=== PATIENT | female | born 1965 | race Caucasian/White ===

== ENCOUNTER 2016-08-19 13:59 | Inpatient (IN) | payer OTHER ==
[~2016-08-19] VITALS: Ht 167.6 cm; Wt 102.1 kg
[2016-08-19 14:05] VITALS: BP 137/90; PULSE 95; RESP 26; TEMP 98; O2SAT 100
[2016-08-19] MEDS ORDERED: IPRATROPIUM/ALBUTEROL SULFATE 3 ML AMPUL.NEB INH ONE (14:15)
[2016-08-19 14:46] LABS: BASOPHILS # (AUTO) 0.1 K/uL (0.0-0.2); EOSINOPHILS # (AUTO) 0.4 K/uL (0.0-0.4); EOSINOPHILS % (AUTO) 4.5 % (0.0-4.0); HEMOGLOBIN 12.3 g/dL (12.0-16.0); LYMPHOCYTES % (AUTO) 20.5 % (20.5-51.5); MEAN CORPUSCULAR HEMOGLOBIN 29 pg (27-31); MEAN CORPUSCULAR HGB CONC 34 % (32-36); MEAN CORPUSCULAR VOLUME 84 fL (79.0-98.0); MONOCYTES # (AUTO) 0.4 K/uL (0.0-1.0); MONOCYTES % (AUTO) 3.9 % (1.7-9.3); NEUTROPHILS % (AUTO) 70.1 % (40.0-70.0); PLATELET COUNT (AUTO) 326 K/uL (130-430); RED BLOOD CELL COUNT(AUTO) 4.29 MIL/uL (4.2-6.2); RED CELL DISTRIBUTION WIDTH 13.1 % (9.0-15.0); WHITE BLOOD COUNT (AUTO) 9.9 K/uL (4.8-10.8)
[2016-08-19 14:48] LABS: CALCIUM 9.8 mg/dL (8.4-11.0); CREATININE 0.88 mg/dL (0.55-1.30); POTASSIUM 3.9 mmol/L (3.5-5.1)
[2016-08-19 14:53] LABS: ALBUMIN 4.5 g/dL (3.4-4.8); TOTAL BILIRUBIN 0.3 mg/dL (0.0-1.0)
[2016-08-19 15:02] LABS: BILIRUBIN,URINE NEGATIVE (NEGATIVE); BLOOD, URINE NEGATIVE (NEGATIVE); CLARITY/URINE CLEAR (CLEAR); COLOR,URINE YELLOW (YELLOW); GLUCOSE,URINE NEGATIVE (NEGATIVE); KETONES,URINE 1+ (NEGATIVE); LEUKOCYTE ESTERASE ,URINE NEGATIVE (NEGATIVE); NITRITE, URINE NEGATIVE (NEGATIVE); PH,URINE 8.5 (5.0-8.0); PROTEIN URINE NEGATIVE (NEGATIVE); UROBILINOGEN,URINE 0.2 (0.2-1.0)
[2016-08-19 15:12] LABS: BARBITURATE, URINE NEGATIVE (NEG <=200); BENZODIAZEPINE, URINE NEGATIVE (NEG <=150); CANNABINOID, URINE NEGATIVE (NEG <=50); COCAINE, URINE NEGATIVE (NEG <=150); METHAMPHETAMINES SCREEN,URINE NEGATIVE (NEG <=500); OPIATE, URINE NEGATIVE (NEG <=100); PHENCYCLIDINE SCREEN,URINE NEGATIVE (NEG <=25); UR TRICYCLIC ANTIDEPRESSANTS NEGATIVE (NEG <=300); URINE AMPHETAMINE NEGATIVE (NEG <=500); URINE METHADONE NEGATIVE (NEG <=200); URINE OXYCODONE SCREEN NEGATIVE (NEG <=100); URINE PROPOXYPHENE SCREEN NEGATIVE (NEG <=300)
[2016-08-19] MEDS ORDERED: methylPREDNISolone SOD SUCC/PF 62.5 MG/ML VIAL IVP ONE (15:45)
[2016-08-19] MEDS ORDERED: MOXIFLOXACIN HCL 400 MG TABLET (AVELOX) PO ONE (16:00)
[2016-08-19] MEDS ORDERED: ALBU8.5H8 INH (16:44)
[2016-08-19] MEDS ORDERED: LEVO75TA7 PO (16:44)
[2016-08-19] MEDS ORDERED: ONDANSETRON 4 MG ODT TAB PO ONE (16:45)
[2016-08-19] MEDS ORDERED: NACL 0.9% 1,000 ML IV ONE (17:00)
[2016-08-19 17:18] VITALS: BP 109/66; PULSE 84; RESP 20; TEMP 97.6; O2SAT 100
[2016-08-19] MEDS ORDERED: ALBUTEROL MDI INHALATION 8 GM INH INH PRN (17:45)
[2016-08-19] MEDS ORDERED: ONDANSETRON HCL 4 MG/2 ML VIAL IVP PRN (17:45)
[2016-08-19] MEDS ORDERED: MORPHINE 2 MG/ML INJ. SYRINGE IVP PRN (17:45)
[2016-08-19] MEDS ORDERED: DOCUSATE SODIUM 100 MG CAPSULE PO PRN (17:45)
[2016-08-19] MEDS ORDERED: ZOLPIDEM TARTRATE 5 MG TABLET PO PRN (17:45)
[2016-08-19] MEDS ORDERED: LORazepam 2 MG/ML VIAL IVP PRN (17:45)
[2016-08-19] MEDS ORDERED: MAGNESIUM SULFATE 50 ML IV PRN (17:45)
[2016-08-19] MEDS ORDERED: POTASSIUM CHLORIDE 10 MEQ TAB.PRT.SR PO PRN (17:45)
[2016-08-19 19:30] VITALS: BP 138/82; PULSE 103; RESP 20; TEMP 97.8; O2SAT 99
[2016-08-19] MEDS ORDERED: ALPRAZolam 0.25 MG TABLET PO PRN (19:45)
[2016-08-19] MEDS ORDERED: LEVALBUTEROL HCL 0.63 MG/3 ML VIAL.NEB INH ONE (20:00)
[2016-08-19 20:49] VITALS: BP 138/82; PULSE 103
[2016-08-19] MEDS: LACTOBACILLUS RHAMNOSUS GG 1 CAP CAPSULE PO SCH (20:58)
[2016-08-19] MEDS: HEPARIN SODIUM,PORCINE 5000 UNITS/ML VIAL SUBCUT SCH (21:00)
[2016-08-19] MEDS: methylPREDNISolone SOD SUCC/PF 62.5 MG/ML VIAL IVP SCH (21:16)
[2016-08-20] VITALS: BP 116/64; PULSE 97; RESP 16; TEMP 97.6; O2SAT 98
[2016-08-20 04:00] VITALS: BP 122/67; PULSE 92; RESP 16; TEMP 98; O2SAT 97
[2016-08-20] MEDS: LEVALBUTEROL HCL 0.63 MG/3 ML VIAL.NEB INH SCH ×4 (04:19→19:26)
[2016-08-20] MEDS: methylPREDNISolone SOD SUCC/PF 62.5 MG/ML VIAL IVP SCH (05:42)
[2016-08-20] MEDS: ACETAMINOPHEN 325 MG TABLET PO PRN ×2 (06:08→16:16)
[2016-08-20] MEDS: LEVOTHYROXINE SODIUM 0.075 MG TABLET PO SCH (06:08)
[2016-08-20 07:03] LABS: CREATININE 0.95 mg/dL (0.55-1.30); POTASSIUM 3.9 mmol/L (3.5-5.1)
[2016-08-20 07:12] LABS: BASOPHILS % (AUTO) 0.1 % (0.0-2.0); HEMOGLOBIN 11.7 g/dL (12.0-16.0); LYMPHOCYTES # (AUTO) 0.7 K/uL (1.0-5.5); LYMPHOCYTES % (AUTO) 7.1 % (20.5-51.5); MEAN CORPUSCULAR HEMOGLOBIN 28 pg (27-31); MEAN CORPUSCULAR HGB CONC 34 % (32-36); MEAN CORPUSCULAR VOLUME 85 fL (79.0-98.0); MONOCYTES % (AUTO) 0.5 % (1.7-9.3); NEUTROPHILS % (AUTO) 92.3 % (40.0-70.0); PLATELET COUNT (AUTO) 301 K/uL (130-430); RED BLOOD CELL COUNT(AUTO) 4.12 MIL/uL (4.2-6.2); RED CELL DISTRIBUTION WIDTH 13.4 % (9.0-15.0); WHITE BLOOD COUNT (AUTO) 9.7 K/uL (4.8-10.8)
[2016-08-20 08:00] VITALS: BP 122/76; PULSE 104; RESP 18; TEMP 98.1; O2SAT 94
[2016-08-20] MEDS: methylPREDNISolone SOD SUCC 40 MG/ML VIAL IVP SCH ×2 (09:40→20:54)
[2016-08-20] MEDS: LACTOBACILLUS RHAMNOSUS GG 1 CAP CAPSULE PO SCH ×2 (09:40→20:53)
[2016-08-20] MEDS: HEPARIN SODIUM,PORCINE 5000 UNITS/ML VIAL SUBCUT SCH ×2 (09:43→21:00)
[2016-08-20 09:56] LABS: ABG TOTAL HEMOGLOBIN 13.3 G/dL (12.0-18.0); BLOOD GAS PH 7.467 (7.350-7.450)
[2016-08-20 09:57] LABS: BLOOD GAS COHb% 0.4 % (0.5-1.5); BLOOD GAS HHB 2.6 % (0.0-6.0); BLOOD O2Hb% 96.5 % (94.0-97.0)
[2016-08-20 12:30] VITALS: BP 123/75; PULSE 115; RESP 19; TEMP 97.5; O2SAT 99
[2016-08-20 16:00] VITALS: BP 136/79; PULSE 102; RESP 20; TEMP 99.2; O2SAT 97
[2016-08-20] MEDS ORDERED: LEVOFLOXACIN 500 MG/D5W 100 ML IV SCH (17:00)
[2016-08-20 23:30] VITALS: BP 125/73; PULSE 101; RESP 20; TEMP 98; O2SAT 96
[2016-08-21] VITALS: BP 125/73; PULSE 101; RESP 18; TEMP 98; O2SAT 96
[2016-08-21 04:00] VITALS: BP 108/63; PULSE 85; RESP 20; TEMP 97.2; O2SAT 99
[2016-08-21] MEDS: LEVALBUTEROL HCL 0.63 MG/3 ML VIAL.NEB INH SCH ×4 (05:24→19:39)
[2016-08-21] MEDS: LEVOTHYROXINE SODIUM 0.075 MG TABLET PO SCH (06:49)
[2016-08-21 07:34] LABS: HEMATOCRIT 33.7 % (36-48); HEMOGLOBIN 11.1 g/dL (12.0-16.0); LYMPHOCYTES # (AUTO) 1.2 K/uL (1.0-5.5); LYMPHOCYTES % (AUTO) 7.6 % (20.5-51.5); MEAN CORPUSCULAR HEMOGLOBIN 28 pg (27-31); MEAN CORPUSCULAR HGB CONC 33 % (32-36); MEAN CORPUSCULAR VOLUME 86 fL (79.0-98.0); MONOCYTES # (AUTO) 0.4 K/uL (0.0-1.0); MONOCYTES % (AUTO) 2.8 % (1.7-9.3); NEUTROPHILS # (AUTO) 13.5 K/uL (1.8-7.7); NEUTROPHILS % (AUTO) 89.6 % (40.0-70.0); PLATELET COUNT (AUTO) 283 K/uL (130-430); RED BLOOD CELL COUNT(AUTO) 3.91 MIL/uL (4.2-6.2); RED CELL DISTRIBUTION WIDTH 13.7 % (9.0-15.0); WHITE BLOOD COUNT (AUTO) 15.1 K/uL (4.8-10.8)
[2016-08-21 07:36] LABS: CALCIUM 8.8 mg/dL (8.4-11.0); CREATININE 0.88 mg/dL (0.55-1.30); POTASSIUM 4.1 mmol/L (3.5-5.1)
[2016-08-21 07:54] LABS: BLOOD GAS BASE EXCESS -2.2 mmol/L (-3.0-3.0); BLOOD GAS COHb% 0.3 % (0.5-1.5); BLOOD GAS PH 7.473 (7.350-7.450); BLOOD O2Hb% 96.4 % (94.0-97.0)
[2016-08-21 08:14] VITALS: BP 106/51; PULSE 74; RESP 18; TEMP 97.8; O2SAT 98
[2016-08-21] MEDS: LACTOBACILLUS RHAMNOSUS GG 1 CAP CAPSULE PO SCH ×2 (08:44→21:48)
[2016-08-21] MEDS: HEPARIN SODIUM,PORCINE 5000 UNITS/ML VIAL SUBCUT SCH ×2 (08:47→21:47)
[2016-08-21] MEDS: PREDNISONE 20 MG TABLET PO SCH (09:22)
[2016-08-21] MEDS: PANTOPRAZOLE SODIUM 40 MG TAB PO SCH (09:22)
[2016-08-21] MEDS: LEVOFLOXACIN 500 MG TABLET PO SCH (09:23)
[2016-08-21 12:09] VITALS: BP 137/95; PULSE 80; RESP 16; TEMP 98.6; O2SAT 96
[2016-08-21 16:22] VITALS: BP 146/74; PULSE 100; RESP 16; TEMP 97.9; O2SAT 95
[2016-08-21 20:02] VITALS: BP 114/70; PULSE 79; RESP 15; TEMP 98.4; O2SAT 98
[2016-08-22] VITALS: BP 106/54; PULSE 78; RESP 18; TEMP 97.8; O2SAT 96
[2016-08-22] MEDS: LEVALBUTEROL HCL 0.63 MG/3 ML VIAL.NEB INH SCH ×2 (00:54→07:45)
[2016-08-22 04:32] VITALS: BP 110/62; PULSE 76; RESP 17; TEMP 98.4; O2SAT 98
[2016-08-22 07:33] LABS: EOSINOPHILS % (AUTO) 0.1 % (0.0-4.0); HEMATOCRIT 32.8 % (36-48); HEMOGLOBIN 10.8 g/dL (12.0-16.0); LYMPHOCYTES # (AUTO) 2.8 K/uL (1.0-5.5); MEAN CORPUSCULAR HEMOGLOBIN 28 pg (27-31); MEAN CORPUSCULAR HGB CONC 33 % (32-36); MEAN CORPUSCULAR VOLUME 86 fL (79.0-98.0); MONOCYTES # (AUTO) 0.5 K/uL (0.0-1.0); MONOCYTES % (AUTO) 4.6 % (1.7-9.3); NEUTROPHILS # (AUTO) 6.7 K/uL (1.8-7.7); NEUTROPHILS % (AUTO) 67.3 % (40.0-70.0); PLATELET COUNT (AUTO) 258 K/uL (130-430); RED BLOOD CELL COUNT(AUTO) 3.82 MIL/uL (4.2-6.2); RED CELL DISTRIBUTION WIDTH 13.4 % (9.0-15.0)
[2016-08-22 07:50] LABS: CALCIUM 8.4 mg/dL (8.4-11.0); CREATININE 0.88 mg/dL (0.55-1.30); POTASSIUM 3.6 mmol/L (3.5-5.1)
[2016-08-22 08:00] VITALS: BP 108/63; PULSE 75; RESP 17; TEMP 98.5; O2SAT 96
[2016-08-22] MEDS: LEVOFLOXACIN 500 MG TABLET PO SCH (09:39)
[2016-08-22] MEDS: PREDNISONE 20 MG TABLET PO SCH (09:39)
[2016-08-22] MEDS: LACTOBACILLUS RHAMNOSUS GG 1 CAP CAPSULE PO SCH (09:39)
[2016-08-22] MEDS: PANTOPRAZOLE SODIUM 40 MG TAB PO SCH (09:40)
[2016-08-22] MEDS: HEPARIN SODIUM,PORCINE 5000 UNITS/ML VIAL SUBCUT SCH (09:41)
[2016-08-22 10:09] VITALS: BP 103/63; PULSE 75; RESP 17; TEMP 98.5; O2SAT 96
== END 2016-08-22 13:50 | disposition home or self-care (01) | DRG 152 ==
LOC: SED 13:59 → STU 16:52 → SMU 17:00
PROVIDERS: ADMIT General Practice; ATTEND General Practice
DX: J01.90 Acute sinusitis, unspecified (principal); J18.9 Pneumonia, unspecified organism; J45.901 Unspecified asthma with (acute) exacerbation; E87.2 Acidosis; E66.9 Obesity, unspecified; F41.1 Generalized anxiety disorder; Z88.1 Allergy status to other antibiotic agents; Z88.0 Allergy status to penicillin; Z90.49 Acquired absence of other specified parts of digestive tract; Z79.899 Other long term (current) drug therapy; Z68.36 Body mass index [BMI] 36.0-36.9, adult
CPT/HCPCS: 36415; 36600; 70486-TC; 71010; 80048; 80053; 80307; 81003; 82785; 82803-TC; 83605; 83735-TC; 85025; 86403; 87040-TC; 87081; 94640; 94760; 96365; 96375; 99285; J1030; J1644; J1956; J2930; J7030; J7050; J7512; Q0162

== ENCOUNTER 2017-06-21 11:48 | Emergency (ER) | payer OTHER ==
[~2017-06-21] VITALS: Ht 165.1 cm; Wt 99.8 kg
[~2017-06-21 11:48] MED LIST: LEVO75TA7 PO
[2017-06-21] MEDS ORDERED: KETOROLAC TROMETHAMINE 60 MG/2 ML VIAL IM ONE (12:15)
[2017-06-21 12:17] VITALS: BP_SYST 137
[2017-06-21 12:59] LABS: HEMATOCRIT 41.4 % (36-48); HEMOGLOBIN 13.9 g/dL (12.0-16.0); MEAN CORPUSCULAR HEMOGLOBIN 31 pg (27-31); MEAN CORPUSCULAR HGB CONC 34 % (32-36); MEAN CORPUSCULAR VOLUME 91 fL (79.0-98.0); PLATELET COUNT (AUTO) 334 K/uL (130-430); RED BLOOD CELL COUNT(AUTO) 4.57 MIL/uL (4.2-6.2); RED CELL DISTRIBUTION WIDTH 11.5 % (9.0-15.0); WHITE BLOOD COUNT (AUTO) 5.2 K/uL (4.8-10.8)
[2017-06-21 13:00] LABS: BASOPHILS # (AUTO) 0.1 K/uL (0.0-0.2); BASOPHILS % (AUTO) 1.2 % (0.0-2.0); EOSINOPHILS # (AUTO) 0.1 K/uL (0.0-0.4); EOSINOPHILS % (AUTO) 2.7 % (0.0-4.0); LYMPHOCYTES # (AUTO) 1.5 K/uL (1.0-5.5); MONOCYTES # (AUTO) 0.2 K/uL (0.0-1.0); MONOCYTES % (AUTO) 4.6 % (1.7-9.3); NEUTROPHILS # (AUTO) 3.3 K/uL (1.8-7.7); NEUTROPHILS % (AUTO) 63.5 % (40.0-70.0)
[2017-06-21 13:15] LABS: POTASSIUM 4.4 mmol/L (3.5-5.1)
[2017-06-21 13:16] LABS: CALCIUM 9.4 mg/dL (8.4-11.0); CREATININE 0.94 mg/dL (0.55-1.30)
[2017-06-21 13:20] LABS: ALBUMIN 4.4 g/dL (3.4-4.8); TOTAL BILIRUBIN 0.4 mg/dL (0.0-1.0)
[2017-06-21] MEDS ORDERED: MORPHINE 4 MG/ML INJ. SYRINGE IVP ONE (14:00)
[2017-06-21 16:10] VITALS: BP_SYST 136
[2017-06-21 16:48] LABS: BILIRUBIN,URINE NEGATIVE (NEGATIVE); BLOOD, URINE NEGATIVE (NEGATIVE); CLARITY/URINE CLEAR (CLEAR); COLOR,URINE YELLOW (YELLOW); GLUCOSE,URINE NEGATIVE (NEGATIVE); KETONES,URINE NEGATIVE (NEGATIVE); LEUKOCYTE ESTERASE ,URINE NEGATIVE (NEGATIVE); NITRITE, URINE NEGATIVE (NEGATIVE); PROTEIN URINE NEGATIVE (NEGATIVE); UROBILINOGEN,URINE 0.2 (0.2-1.0)
== END 2017-06-21 16:10 | disposition home or self-care (01) ==
LOC: SED 11:48
DX: M94.0 Chondrocostal junction syndrome [Tietze] (principal); J45.909 Unspecified asthma, uncomplicated; Z90.49 Acquired absence of other specified parts of digestive tract; Z90.89 Acquired absence of other organs; Z88.0 Allergy status to penicillin; Z88.1 Allergy status to other antibiotic agents; Z88.2 Allergy status to sulfonamides
CPT/HCPCS: 36415; 71010; 76642; 80053; 81003; 81025; 84484; 85025; 85379; 85610; 85730; 93005; 96372; 96374; 99285; J1885; J2270